=== PATIENT | female | born 1980 | race African-American/Black ===

== ENCOUNTER 2023-02-08 10:31 | Emergency (ER) | payer OTHER ==
[2023-02-08] MEDS ORDERED: Ketorolac Tromethamine 30 MG/ML VIAL ONE (11:34)
[2023-02-08] MEDS ORDERED: diphenhydrAMINE 50 MG/ML VIAL ONE (11:50)
[2023-02-08] MEDS ORDERED: Dexamethasone 10 MG/ML VIAL ONE (12:08)
== END 2023-02-08 12:15 | disposition home or self-care (01) ==
LOC: CSHERS 10:31
DX: J01.90 Acute sinusitis, unspecified (principal); E11.9 Type 2 diabetes mellitus without complications; I10 Essential (primary) hypertension; F17.210 Nicotine dependence, cigarettes, uncomplicated
CPT/HCPCS: 36416; 96372; 99284; J1100; J1200; J1885